=== PATIENT | female | born 1950 | race American Indian/Alaskan Native ===

== ENCOUNTER 2018-06-16 17:04 | Inpatient (IN) | payer MEDICARE, MEDICAID ==
--- NOTE | 2018-06-16 18:15 | Emergency Department Report ---
ED General Adult HPI - General Chief complaint: Weakness Stated complaint: HIGH BP/HIGH GLUCOSE Time Seen by Provider: 06/16/18 17:34 Source: patient, family, RN notes reviewed, old records reviewed Mode of arrival: Ambulatory Limitations: Physical Limitation - History of Present Illness Initial comments: Patient is a poor historian This is a 68-year-old female. The patient has a past medical history of hypertension, tobacco consumption, stroke with residual left-sided deficits. She is brought to the hospital by her daughter for evaluation of left-sided leg weakness, unsteady gait, generalized malaise. Her last known well time is not known. It is suspected that her symptoms have been going on for a week. The patient only complains of genera lized weakness, and decreased energy, does not specifically complain of left- sided weakness which is not a new, worsening or different. The patient denies headache, neck pain, chest pain, abdominal pain, urinary symptoms, has chronic weakness which she subjectively feels is not a new, worsening or different, but her daughter is adamant that her weakness is worse than prior. -: Gradual, days(s) Location: left, upper extremity, lower extremity Consistency: other Improves with: other Worsens with: other Associated Symptoms: loss of appetite, malaise, shortness of breath, weakness. denies: confusion, chest pain, cough, diaphoresis, fever/chills, headaches - Related Data Previous Rx's Medication Instructions Recorded Last Taken Type Acetaminophen [Acetaminophen TAB] 650 mg PO Q4H PRN #30 tablet 11/12/16 Unknown Rx Insulin NPH/Regular [NovoLIN 70/30] 10 unit SUB-Q BIDDIAB 30 Days 11/22/16 Unknown Rx units Insulin NPH/Regular [Novolin 70/30] 10 unit SUB-Q BIDDIAB 30 Days 11/22/16 U nknown Rx units Ipratropium/Albuterol Sulfate 1 ampul IH TIDRT 30 Days ampul.neb 11/22/16 Un known Rx [DUONEB *Not for PRN Use*] Ipratropium/Albuterol Sulfate 1 ampul IH TID #90 ampul.neb 11/22/16 Unknown Rx [Duoneb 0.5 mg-3 mg/3 ml Soln] Lisinopril [Zestril TAB] 40 mg PO QDAY #30 tablet 11/22/16 Unknown Rx Lisinopril [Zestril] 40 mg PO QDAY #30 tablet 11/22/16 Unknown Rx Nicotine [Habitrol] 21 mg TD QDAY #30 patch 11/22/16 Unknown Rx Simvastatin [Zocor TAB] 20 mg PO QHS #30 tablet 11/22/16 Unknown Rx amLODIPine [Norvasc] 10 mg PO DAILY #30 tab 11/22/16 Unknown Rx Allergies Allergy/AdvReac Type Severity Reaction Status Date / Time No Known Allergies Allergy Verified 11/11/16 15:26 ED Review of Systems ROS: Stated complaint: HIGH BP/HIGH GLUCOSE Other details as noted in HPI Constitutional: malaise, weakness Eyes: denies: eye discharge ENT: denies: congestion Respiratory: denies: cough Cardiovascular: edema. denies: chest pain Gastrointestinal: denies: abdominal pain Genitourinary: denies: dysuria Musculoskeletal: arthralgia Skin: denies: lesions Neurological: weakness Psychiatric: anxiety ED Past Medical Hx - Past Medical History Hx Hypertension: Yes Hx Heart Attack/AMI: Yes ([place]) Hx Diabetes: Yes Hx Asthma: Yes Hx COPD: Yes Additional medical history: Arrhythmia o2 at home prn. CAD - Surgical History Additional Surgical History: Cardiac catheterization 2004 - Social History Smoking Status: Current Every Day Smoker Substance Use Type: None - Medications Home Medications: Home Medications Medication Instructions Recorded Confirmed Last Taken Type Acetaminophen [Acetaminophen TAB] 650 mg PO Q4H PRN #30 tablet 11/12/16 11/12/16 Unknown Rx Insulin NPH/Regular [NovoLIN 70/30] 10 unit SUB-Q BIDDIAB 30 Days 11/22/16 Unknown Rx units Insulin NPH/Regular [Novolin 70/30] 10 unit SUB-Q BIDDIAB 30 Days 11/22/16 Unknown Rx units Ipratropium/Albuterol Sulfate 1 ampul IH TIDRT 30 Days ampul.neb 11/22/16 Unknown Rx [DUONEB *Not for PRN Use*] Ipratropium/Albuterol Sulfate 1 ampul IH TID #90 ampul.neb 11/22/16 Unknown Rx [Duoneb 0.5 mg-3 mg/3 ml Soln] Lisinopril [Zestril TAB] 40 mg PO QDAY #30 tablet 11/22/16 Unknown Rx Lisinopril [Zestril] 40 mg PO QDAY #30 tablet 11/22/16 Unknown Rx Nicotine [Habitrol] 21 mg TD QDAY #30 patch 11/22/16 Unknown Rx Simvastatin [Zocor TAB] 20 mg PO QHS #30 tablet 11/22/16 Unknown Rx amLODIPine [Norvasc] 10 mg PO DAILY #30 tab 11/22/16 Unknown Rx ED Physical Exam - General Limitations: No Limitations General appearance: alert, in no apparent distress - Head Head exam: Present: atraumatic, normocephalic - Eye Eye exam: Present: normal appearance, EOMI. Absent: nystagmus - ENT ENT exam: Present: normal exam, normal orophraynx, mucous membranes moist, normal external ear exam - Neck Neck exam: Present: normal inspection, full ROM. Absent: tenderness, meningismus - Respiratory Respiratory exam: Present: normal lung sounds bilaterally. Absent: respiratory distress - Cardiovascular Cardiovascular Exam: Present: regular rate, normal rhythm, normal heart sounds. Absent: bradycardia, tachycardia, irregular rhythm, systolic murmur, diastolic murmur, rubs, gallop - GI/Abdominal GI/Abdominal exam: Present: soft. Absent: distended, tenderness, guarding, rebound, rigid, pulsatile mass - Extremities Exam Extremities exam: Present: normal inspection, full ROM, pedal edema, other (2+ pulses noted in the bilateral upper, lower extremities. Compartments soft. No long bony tenderness. The pelvis is stable.). Absent: calf tenderness - Back Exam Back exam: Present: normal inspection. Absent: tenderness, CVA tenderness (R), paraspinal tenderness - Neurological Exam Neurological exam: Present: alert, oriented X3, motor sensory deficit (there is 4-5 strength left upper, left lower extremity. Sensation intact to light touch left upper, left lower extremity), other (there is no facial droop. The tongue is midline. Extraocular movements are intact bilaterally. Shoulder shrug is intact bilaterally, hearing is intact bilaterally, V1, V2, V3 intact bilaterally) - Psychiatric Psychiatric exam: Present: normal affect, normal mood - Skin Skin exam: Present: warm, dry, intact, normal color. Absent: rash ED Course Vital Signs 06/16/18 06/16/18 06/16/18 17:14 18:38 18:46 Temperature 98 F Pulse Rate 91 H 78 78 Respiratory 16 18 26 H Rate Blood Pressure 240/130 201/112 O2 Sat by Pulse 96 90 92 Oximetry 06/16/18 06/16/18 06/16/18 19:52 20:00 20:02 Temperature Pulse Rate 84 83 Respiratory 20 16 Rate Blood Pressure 213/111 205/108 O2 Sat by Pulse 90 100 Oximetry - Reevaluation(s) Reevaluation #1: 06/16/18 18:19 Differential diagnosis, including not limited to: Subacute stroke, pneumonia, urinary tract infection, electrolyte derangement, deconditioning Assessment and plan: 68-year-old female who is brought in for unsteady gait and worsens left lower extremity weakness by her daughter, which has been going on for a few days. Her exact last known well time is not known. Therefore, the patient is not a TPA candidate. Symptoms have been going on for greater than 24 hours, therefore, the patient is not an endovascular intervention candidate, and therefore emergent CT angiogram of the head and neck is not indicated. The patient only endorses generalized weakness and malaise. We'll obtain screening laboratory studies, EKG, urinalysis, chest x-ray, noncontrast CT scan of the brain, and we will reassess. Reevaluation #2: 06/16/18 19:56 Dr Nicole accepts to the medical service on behalf of Dr Orquidea Crockett Reevaluation #3: 06/16/18 20:24 ct head negative for bleed multiple chronic infarcts noted ED Medical Decision Making - Lab Data Result diagrams: 06/16/18 18:39 06/16/18 18:39 Vital Signs 06/16/18 17:14 Temperature 98 F Pulse Rate 91 H Respiratory 16 Rate Blood Pressure 240/130 O2 Sat by Pulse 96 Oximetry - EKG Data -: EKG Interpreted by Me EKG shows normal: sinus rhythm - EKG Data 06/16/18 18:23 Sinus, 85 bpm, left axis deviation, QTC prolonged, motion artifact, nonspecific T-wave abnormalities, abnormal EKG, not consistent with ST elevation myocardial infarction. - Radiology Data Radiology results: image reviewed interpreted by me: X-ray of the chest is negative for acute disease, cardiomegaly is noted, pulmonary vascular congestion is noted. Critical care attestation.: If time is entered above; I have spent that time in minutes in the direct care of this critically ill patient, excluding procedure time. ED Disposition Clinical Impression: CVA (cerebral vascular accident), Abnormality of gait following cerebrovascular accident (CVA), HTN (hypertension) Disposition: DC-09 OP ADMIT IP TO THIS HOSP Is pt being admited?: Yes Does the pt Need Aspirin: Yes Condition: Stable Instructions: Hypertension (ED) - Assessment Assessment Interval: Baseline - Level of Consciousness 1a. Level of Consciousness: alert/keenly responsive - LOC Questions 1b. LOC Questions: answers both correctly - LOC Command 1c. LOC Commands: performs tasks correctly - Best Gaze 2. Best Gaze: normal - Visual 3. Visual: no visual loss - Facial Palsy 4. Facial Palsy: normal symmetrical movement - Motor Arm 5b. Motor Arm Right: no drift 5a. Motor Arm Left: drift - Motor Leg 6b. Motor Leg Right: drift 6a. Motor Leg Left: no drift - Limb Ataxia 7. Limb Ataxia: absent - Sensory 8. Sensory: normal - Best Language 9. Best Language: no aphasia - Dysarthria 10. Dysarthria: normal - Extinction and Inattention 11. Extinction/Inattention: no abnormality - Scoring Total Score: 2 Stroke Severity: Minor Stroke
[2018-06-16] MEDS ORDERED: APRESOLINE IV ONE (18:20)
[2018-06-16 19:04] LABS: Basophils % (Auto) 1.2 % (0.0-1.8); Eosinophils # (Auto) 0.1 K/mm3 (0.0-0.4); Hematocrit 47.3 % (30.3-42.9); Hemoglobin 15.3 gm/dl (10.1-14.3); Lymphocytes # (Auto) 1.8 K/mm3 (1.2-5.4); Lymphocytes % (Auto) 48.7 % (13.4-35.0); Mean Corpuscular HGB Conc 32 % (30-34); Mean Corpuscular Volume 90 fl (79-97); Monocytes # (Auto) 0.2 K/mm3 (0.0-0.8); Monocytes % (Auto) 6.1 % (0.0-7.3); Platelet Count 181 K/mm3 (140-440); Red Blood Count 5.28 M/mm3 (3.65-5.03); Red Cell Distribution Width 15.9 % (13.2-15.2)
[2018-06-16 19:15] LABS: Bacteria,Urine 2+ /HPF (Negative); Bilirubin,Urine NEG (Negative); Blood,Urine NEG (Negative); Color,Urine Straw (Yellow); Mucus,Urine FEW /HPF; Urobilinogen,Urine < 2.0 mg/dL (<2.0); WBC,Urine < 1.0 /HPF (0.0-6.0)
[2018-06-16 19:17] LABS: INR 0.94 (0.87-1.13)
[2018-06-16 19:18] LABS: Thrombin Time 18.6 Sec. (15.1-19.6)
[2018-06-16 19:49] LABS: Creatine Kinase MB 2.6 ng/mL (0.0-4.0)
[2018-06-16 19:50] LABS: Alanine Aminotransferase 9 units/L (7-56); Albumin 4.1 g/dL (3.9-5); BUN/Creatinine Ratio 16; Blood Urea Nitrogen 11 mg/dL (7-17); Calcium 9.6 mg/dL (8.4-10.2); Hemolysis Index 7
[2018-06-16] MEDS ORDERED: BABY ASPIRIN PO ONE (19:56)
--- NOTE | 2018-06-16 20:21 | Cat Scan Report ---
FINAL REPORT EXAM: CT HEAD/BRAIN WO CON HISTORY: Stroke symptoms TECHNIQUE: Axial noncontrast CT images of the brain were performed Total exam DLP 920.48 mGy-cm Comparison: CTA head 11/11/2016 demonstrating completed left subinsular region with extension into th e left basal ganglia and hypodense region in the right thalamus FINDINGS: Exam is motion degraded. Cortical atrophy. Again identified in the left subinsular region is a completed now 10 millimeter chronic lacunar infar ct. There also completed lacunar infarcts of the right thalamus, the largest measuring 1 centimeter. There is a 2nd smaller completed right thalamic infarct measuring 4 millimeters. No acute extra-axial fluid collection. No midline shift. No mass effect. No intraparenchymal blood products or extra-axial fluid collections. Conjugate gaze. Minimal ethmoid air cell mucosal thickening. IMPRESSION: Known chronic right thalamic and left subinsular completed lacunar infarcts. No acute transcortical infarct, bleed, or mass identified. Exam is motion degraded however. If clinically indicated, recommend MRI with diffusion-weighted imaging.
--- NOTE | 2018-06-16 20:33 | XRay Report ---
FINAL REPORT EXAM: XR CHEST 1V AP HISTORY: weakness TECHNIQUE: Frontal chest x-ray Comparison: None FINDINGS: Heart is enlarged. The right hilar contour is very lobular. This may be vascular or related to a mass. It measures 4.4 x 3.4 centimeters. There are nodular bilateral basal infiltrates. There is degenerative arthritis of the right acromion and acromioclavicular joint. Left pulmonary artery is prominent. Aorta is tortuous. IMPRESSION: Low volume exam with enlarged cardiac silhouette and very prominent lobular katlin. These findings are likely vascular but a mass cannot be excluded. Recommend CT chest. If there is any dyspnea history, r ecommend CTA chest pulmonary artery protocol. Patchy bilateral basal infiltrates.
[2018-06-16] MEDS ORDERED: BABY ASPIRIN ONE (21:55)
[2018-06-16] MEDS ORDERED: DULCOLAX PR PRN (22:27)
[2018-06-16] MEDS ORDERED: REGLAN PO PRN (22:27)
[2018-06-16] MEDS ORDERED: MILK OF MAGNESIA PO PRN (22:27)
[2018-06-16] MEDS ORDERED: APRESOLINE IV PRN (22:27)
[2018-06-16] MEDS ORDERED: ZOFRAN IV PRN (22:27)
[2018-06-16] MEDS ORDERED: PHENERGAN PR PRN (22:27)
[2018-06-16] MEDS ORDERED: TYLENOL PO PRN (22:27)
[2018-06-16] MEDS ORDERED: PNEUMOVAX 23 IM ONE (22:48)
--- NOTE | 2018-06-16 22:52 | History and Physical Report ---
History of Present Illness Date of examination: 06/16/18 Date of admission: 06/16/18 19:56 History of present illness: 68-year-old male with a history of hypertension, CVA comes emergency room c omplaining of left sided weakness 3 weeks. She has difficulty ambulating and occasionally drops things from the left hand Review of systems Constitutional: no weight loss, chills, fever Ears, eyes, nose, mouth and throat: no nasal congestion, no nasal discharge, no sinus pressure, no vision change, no red eye. Neck: No neck pain or rigidity. Cardiovascular: no palpitations, chest pain Respiratory: no cough, shortness of breath Gastrointestinal: no hematochezia, abdominal pain Genitourinary : no frequency , no hematuria Musculoskeletal: no joint swelling or muscle ache Integumentary: no rash, no pruritis Neurological: no parathesias Endocrine: no cold or heat intolerance, no polyuria or polydipsia Hematologic/Lymphatic: no easy bruising, no easy bleeding, no gland swelling Allergic/Immunologic: no urticaria, no angioedema. PAST MEDICAL HISTORY: hypertension, CVA PAST SURGICAL HISTORY: None SOCIAL HISTORY: Denies alcohol, drugs, smoke 1 pack every 3 weeks FAMILY HISTORY: Hypertension Medications and Allergies Allergies Allergy/AdvReac Type Severity Reaction Status Date / Time No Known Allergies Allergy Verified 11/11/16 15:26 Home Medications Medication Instructions Recorded Confirmed Last Taken Type RX: Insulin NPH/Regular [NovoLIN 10 unit SUB-Q BIDDIAB 30 Days 11/22/16 06/16/18 Unknown Rx 70/30] units RX: amLODIPine [Norvasc] 10 mg PO DAILY #30 tab 11/22/16 06/16/18 Unknown Rx RX: Lisinopril [Zestril] 10 mg PO DAILY 06/16/18 06/16/18 Unknown History RX: buPROPion SR [Wellbutrin SR] 150 mg PO BID 06/16/18 06/16/18 Unknown History RX: metFORMIN [Glucophage] 850 mg PO BID 06/16/18 06/16/18 Unknown History RX: AtorvaSTATin [Lipitor] 40 mg PO QHS tablet 06/23/18 Unknown Rx RX: Clopidogrel [Plavix] 75 mg PO QDAY tablet 06/23/18 Unknown Rx RX: Lispro Insulin [Humalog] 0 unit SUB-Q ACHS units 06/23/18 Unknown Rx RX: Magnesium Hydroxide [Milk of 30 ml PO Q4H PRN oral.liqd 06/23/18 Unknown Rx Magnesia] RX: Metoclopramide [Reglan TAB] 10 mg PO Q6H PRN tablet 06/23/18 Unknown Rx RX: Nicotine [Habitrol] 14 mg TD QDAY patch 06/23/18 Unknown Rx Active Meds: Active Medications Acetaminophen (Tylenol) 650 mg PO Q4H PRN PRN Reason: Pain, Mild (1-3) Bisacodyl (Dulcolax) 10 mg PA QDAY PRN PRN Reason: Constipation Hydralazine HCl (Apresoline) 5 mg IV Q6H PRN PRN Reason: Keep SBP between 160-185 mm Hg Magnesium Hydroxide (Milk Of Magnesia) 30 ml PO Q4H PRN PRN Reason: Constipation Metoclopramide HCl (Reglan) 10 mg PO Q6H PRN PRN Reason: Nausea And Vomiting Ondansetron HCl (Zofran) 4 mg IV Q8H PRN PRN Reason: Nausea And Vomiting Pneumococcal Polyvalent Vaccine (Pneumovax 23) 0.5 ml IM .ONCE ONE Stop: 06/16/18 22:49 Pravastatin Sodium (Pravachol) 20 mg PO QHS JOSE MIGUEL Promethazine HCl (Phenergan) 25 mg PA Q6H PRN PRN Reason: Nausea And Vomiting Sodium Chloride (Sodium Chloride Flush Syringe 10 Ml) 10 ml INJ PRN PRN PRN Reason: LINE FLUSH Exam - Physical Exam Narrative exam: General Apperance: The patient lying in bed, breathing comfortable HEENT: Normocephalic, atraumatic. Pupils equally round and reactive to light, EOMI, no sclericterus or JVD or thyromegaly or nodule. , no carotid bruit, mucous membranes moist, no exudate or erythema Heart: S1-S2, regular is rhythm Lungs: Clear to auscultation bilaterally, breathing comfortable Abdomen: Positive bowel sounds, soft, nontender, nondistended, no organomegaly Extremities: No edema cyanosis clubbing Skin: no rash, nodule, warm and dry Neuro: cranial nerves 2-12 intact, speech is fluent, left upper and lower extremity 4/5, sensory intact - Constitutional Vitals: Temp Pulse Resp BP Pulse Ox 98 F 88 18 156/72 99 06/16/18 17:14 06/16/18 21:00 06/16/18 22:00 06/16/18 21:30 06/16/18 21:30 Results - Labs CBC & Chem 7: 06/16/18 18:39 06/16/18 18:39 Labs: Abnormal lab results 06/16/18 06/16/18 06/16/18 Range/Units 17:24 18:39 18:39 WBC 3.7 L (4.5-11.0) K/mm3 RBC 5.28 H (3.65-5.03) M/mm3 Hgb 15.3 H (10.1-14.3) gm/dl Hct 47.3 H (30.3-42.9) % RDW 15.9 H (13.2-15.2) % Lymph % (Auto) 48.7 H (13.4-35.0) % Seg Neutrophils # 1.6 L (1.8-7.7) K/mm3 Carbon Dioxide 35 H (22-30) mmol/L Glucose 139 H (65-100) mg/dL POC Glucose 174 H (70-105) - Imaging and Cardiology Chest x-ray: report reviewed CT Scan - head: report reviewed Assessment and Plan Assessment Subacute CVA Possible mass on x-ray Hypertension Plan Admit to medicine Obtain MRI, MRA, echo Do neurochecks Start Plavix, statin Consult neurology, physical and occupational therapy Repeat chest x-ray PA and lateral DVT prophylaxis
[2018-06-17 07:43] LABS: Chol/HDL Ratio 4.38 %
[2018-06-17] MEDS: PLAVIX PO SCH (11:28)
[2018-06-17] MEDS: HABITROL TD SCH (11:34)
--- NOTE | 2018-06-17 11:43 | Progress Note ---
Subjective Date of service: 06/17/18 Interval history: patient seen and assesssed completely I have reviewed the CT of the head and the infarct is multifocal and suspect chronic/ subacute recommend ECHO and MRI/ MRA w/u is in progress I ahve dictated extensive note with full rec's Objective - Vital Sign Vital Signs - 12hr 06/17/18 06/17/18 06/17/18 00:14 04:15 05:58 Temperature 98.5 F 97.4 F L Pulse Rate 79 74 78 Respiratory 18 20 Rate Blood Pressure 185/92 150/85 O2 Sat by Pulse 97 90 Oximetry - Laboratory Findings CBC and BMP: 06/16/18 18:39 06/16/18 18:39 Abnormal Lab Findings: Abnormal Labs 06/16/18 06/16/18 06/16/18 17:24 18:39 18:39 WBC 3.7 L RBC 5.28 H Hgb 15.3 H Hct 47.3 H RDW 15.9 H Lymph % (Auto) 48.7 H Seg Neutrophils # 1.6 L Carbon Dioxide 35 H Glucose 139 H POC Glucose 174 H LDL Cholesterol Direct 06/17/18 06/17/18 04:19 06:27 WBC RBC Hgb Hct RDW Lymph % (Auto) Seg Neutrophils # Carbon Dioxide Glucose POC Glucose 133 H LDL Cholesterol Direct 139 H
[2018-06-17] MEDS ORDERED: PNEUMOVAX 23 IM ONE (12:00)
[2018-06-17] MEDS ORDERED: AFLURIA QUAD 2018-2019 SYRINGE IM ONE (12:00)
--- NOTE | 2018-06-17 12:14 | Consultation ---
HISTORY OF PRESENT ILLNESS: This is a 68-year-old female that presents to Emergency Room at [facility] on 06/16/2018. The patient had a prior history of hypertension and presented with past medical history of having a stroke and she has had increased leg weakness, unsteady gait, and problems of walking. We do not have much of the history as to when the stroke occurred. She had been taking lisinopril, insulin prior to admission and Norvasc. She has a prior history of hypertension, tobacco abuse. The exact onset of her stroke I do not have a clear history about. I did review her CT scan of the head. It shows a large area of deep white matter infarct in the deep white matter of the cerebral peduncle on the right side in the subthalamic region and the motor pathways is quite extensive. It seems to have multifocal nature to it as if several strokes have become confluent, possibly from thrombus in the posterior cerebral artery. After the bifurcation of the basilar the patient has a prior history of having cardiomegaly and COPD. Examination shows she has a mild left hemiparesis, left leg weakness, left facial weakness. She has some parietal lobe findings with the neglect, gaze preference to the right. Neck is Supple. Speech is otherwise clear. She does seem slightly sleepy. IMPRESSION: I am not sure exactly the date of the stroke. This is chronic. It seems to have occurred over at least several weeks with probably recurrent strokes. What is referred to as a confluence stroke with subacute chronic and acute components. MRI scan will be very useful. I would also get an MRI on the patient as I think we are going to find she has severe atherosclerotic disease or maybe a total or subacute occlusion of the right posterior cerebral artery. I would like to make sure she has not had a clot and sometimes clots systemically occur as a result of left ventricular and left atrial clots and this will be important to rule out. I believe that this is due to chronic atherosclerotic disease; however, complicating factors of hypertension, use of tobacco. Continue course of medical therapy as outlined above. JOB# [id number] LISETTE/BARBARA
[2018-06-17 12:21] LABS: Bacteria,Urine 4+ /HPF (Negative); Bilirubin,Urine NEG (Negative); Blood,Urine SM (Negative); Color,Urine Amber (Yellow); Mucus,Urine 1+ /HPF; Urobilinogen,Urine < 2.0 mg/dL (<2.0)
[2018-06-17] MEDS ORDERED: D50W (25GM) Syringe IV PRN (16:25)
--- NOTE | 2018-06-17 16:26 | Progress Note ---
Assessment and Plan Assessment and plan: Subacute stroke Mild left-sided weakness - Patient says the symptoms have been there for 2-3 weeks - CT head shows chronic left-sided infarcts - MRI/MRA is pending, PT/OT, neurology consulted - Patient is on plavix and statin Hypertension - Continue amlodipine Diabetes mellitus - Sliding-scale insulin, ADA diet, Accu-Chek Active tobacco smoker - On nicotine patch DVT prophylaxis - On Lovenox Disposition - Continue inpatient care History Interval history: Patent was seen and evaluated this morning, no new complaints. Admitted for left sided weakness. Hospitalist Physical - Physical exam Narrative exam: Not in cardiopulmonary distress. The patient is obese. Vital signs as documented. Head exam is unremarkable. No scleral icterus . Neck is without jugular venous distension, thyromegaly, or carotid bruits. Lungs are clear to auscultation. Cardiac exam reveals regular rate and Rhythm. Abdominal exam reveals normal bowel sounds. Extremities are nonedematous and both femoral and pedal pulses are normal. HYDRAULIC MINER BLASTING: Alert and oriented 3. Mild left sided weakness. - Constitutional Vitals: Temp Pulse Resp BP Pulse Ox 98.6 F 77 20 145/80 96 06/17/18 09:21 06/17/18 14:00 06/17/18 10:00 06/17/18 12:12 06/17/18 12:12 Results - Labs CBC & Chem 7: 06/16/18 18:39 06/16/18 18:39 Labs: Laboratory Last Values WBC 3.7 K/mm3 (4.5-11.0) L 06/16/18 18:39 RBC 5.28 M/mm3 (3.65-5.03) H 06/16/18 18:39 Hgb 15.3 gm/dl (10.1-14.3) H 06/16/18 18:39 Hct 47.3 % (30.3-42.9) H 06/16/18 18:39 MCV 90 fl (79-97) 06/16/18 18:39 MCH 29 pg (28-32) 06/16/18 18:39 MCHC 32 % (30-34) 06/16/18 18:39 RDW 15.9 % (13.2-15.2) H 06/16/18 18:39 Plt Count 181 K/mm3 (140-440) 06/16/18 18:39 Lymph % (Auto) 48.7 % (13.4-35.0) H 06/16/18 18:39 [place] % (Auto) 6.1 % (0.0-7.3) 06/16/18 18:39 Eos % (Auto) 2.0 % (0.0-4.3) 06/16/18 18:39 Baso % (Auto) 1.2 % (0.0-1.8) 06/16/18 18:39 Lymph # 1.8 K/mm3 (1.2-5.4) 06/16/18 18:39 [place] # 0.2 K/mm3 (0.0-0.8) 06/16/18 18:39 Eos # 0.1 K/mm3 (0.0-0.4) 06/16/18 18:39 Baso # 0.0 K/mm3 (0.0-0.1) 06/16/18 18:39 Seg Neutrophils % 42.0 % (40.0-70.0) 06/16/18 18:39 Seg Neutrophils # 1.6 K/mm3 (1.8-7.7) L 06/16/18 18:39 PT 13.0 Sec. (12.2-14.9) 06/16/18 18:39 INR 0.94 (0.87-1.13) 06/16/18 18:39 APTT 29.0 Sec. (24.2-36.6) 06/16/18 18:39 Thrombin Time 18.6 Sec. (15.1-19.6) 06/16/18 18:39 Sodium 145 mmol/L (137-145) 06/16/18 18:39 Potassium 4.4 mmol/L (3.6-5.0) 06/16/18 18:39 Chloride 101.5 mmol/L (98-107) 06/16/18 18:39 Carbon Dioxide 35 mmol/L (22-30) H 06/16/18 18:39 Anion Gap 13 mmol/L 06/16/18 18:39 BUN 11 mg/dL (7-17) 06/16/18 18:39 Creatinine 0.7 mg/dL (0.7-1.2) 06/16/18 18:39 Estimated GFR > 60 ml/min 06/16/18 18:39 BUN/Creatinine Ratio 16 % 06/16/18 18:39 Glucose 139 mg/dL (65-100) H 06/16/18 18:39 POC Glucose 129 (70-105) H 06/17/18 11:28 Calcium 9.6 mg/dL (8.4-10.2) 06/16/18 18:39 Total Bilirubin 0.20 mg/dL (0.1-1.2) 06/16/18 18:39 AST 15 units/L (5-40) 06/16/18 18:39 ALT 9 units/L (7-56) 06/16/18 18:39 Alkaline Phosphatase 102 units/L (35-129) 06/16/18 18:39 Total Creatine Kinase 112 units/L (30-135) 06/16/18 18:39 CK-MB (CK-2) 2.6 ng/mL (0.0-4.0) 06/16/18 18:39 CK-MB (CK-2) Rel Index 2.3 (0-4) 06/16/18 18:39 Troponin T < 0.010 ng/mL (0.00-0.029) 06/16/18 18:39 Total Protein 7.6 g/dL (6.3-8.2) 06/16/18 18:39 Albumin 4.1 g/dL (3.9-5) 06/16/18 18:39 Albumin/Globulin Ratio 1.2 % 06/16/18 18:39 Triglycerides 135 mg/dL (2-149) 06/17/18 04:19 Cholesterol 184 mg/dL (50-199) 06/17/18 04:19 LDL Cholesterol Direct 139 mg/dL (50-130) H 06/17/18 04:19 HDL Cholesterol 42 mg/dL (40-59) 06/17/18 04:19 Cholesterol/HDL Ratio 4.38 % 06/17/18 04:19 Urine Color Faye (Yellow) 06/17/18 12:00 Urine Turbidity Slightly-cloudy (Clear) 06/17/18 12:00 Urine pH 5.0 (5.0-7.0) 06/17/18 12:00 Ur Specific [place] 1.023 (1.003-1.030) 06/17/18 12:00 Urine Protein 100 mg/dl mg/dL (Negative) 06/17/18 12:00 Urine Glucose (UA) Neg mg/dL (Negative) 06/17/18 12:00 Urine Ketones Neg mg/dL (Negative) 06/17/18 12:00 Urine Blood Sm (Negative) 06/17/18 12:00 Urine Nitrite Neg (Negative) 06/17/18 12:00 Urine Bilirubin Neg (Negative) 06/17/18 12:00 Urine Urobilinogen < 2.0 mg/dL (<2.0) 06/17/18 12:00 Ur Leukocyte Esterase Neg (Negative) 06/17/18 12:00 Urine WBC (Auto) 5.0 /HPF (0.0-6.0) 06/17/18 12:00 Urine RBC (Auto) 1.0 /HPF (0.0-6.0) 06/17/18 12:00 U Epithel Cells (Auto) 5.0 /HPF (0-13.0) 06/17/18 12:00 Urine Bacteria (Auto) 4+ /HPF (Negative) 06/17/18 12:00 Urine Mucus 1+ /HPF 06/17/18 12:00
[2018-06-17] MEDS: HumaLOG SUB-Q SCH ×2 (16:30→22:04)
[2018-06-17] MEDS: NORVASC PO SCH (18:37)
--- NOTE | 2018-06-17 18:58 | Cat Scan Report ---
FINAL REPORT EXAM: CT ANGIO CHEST HISTORY: lung mass vs PE TECHNIQUE: CT examination of the chest with IV contrast CT angiographic 2D and thick slab 3D image post-processing PRIORS: One-view chest 06/16/2018 FINDINGS: Large body habitus limits the examination. Increased soft tissue attenuates the CT x-ray beam and de grades image quality. Caliber of pulmonary arteries larger than ascending aorta raising suspicion of pulmonary arterial hyp ertension. The main pulmonary arteries are also prominent bilaterally, likely accounting for chest x- ray density. Slight to moderate cardiomegaly without pericardial effusion. Intact normal caliber thoracic aorta without aneurysm or dissection. Normal-appearing esophagus. No e vidence of hilar mass or mediastinal adenopathy. The visualized pulmonary arteries are diffusely patent bilaterally. There is no filling defect to sug gest PE. Degenerative change in the regional skeleton. No evidence of acute fracture. No pneumothorax or pleur al effusion. No evidence of lung mass. Slight pleural and parenchymal scar in both lung apices. IMPRESSION: Large body habitus limits the examination. Diffusely enlarged pulmonary arteries bilaterally likely account for chest x-ray density and may refl ect pulmonary arterial hypertension Slight to moderate cardiomegaly No CT evidence of large vessel or central pulmonary emboli.
[2018-06-17] MEDS ORDERED: PRAVACHOL PO SCH (22:00)
[2018-06-17] MEDS: LOVENOX SUB-Q SCH (22:05)
[2018-06-17] MEDS: SODIUM CHLORIDE FLUSH SYRINGE 10 ML IV PRN (22:06)
[2018-06-18] MEDS: HumaLOG SUB-Q SCH ×4 (07:30→22:38)
[2018-06-18] MEDS: HABITROL TD SCH (10:30)
[2018-06-18] MEDS: PLAVIX PO SCH (10:30)
[2018-06-18] MEDS: NORVASC PO SCH (10:31)
[2018-06-18] MEDS: ZESTRIL PO SCH (10:31)
[2018-06-18] MEDS: SODIUM CHLORIDE FLUSH SYRINGE 10 ML IV PRN (10:32)
--- NOTE | 2018-06-18 11:09 | Progress Note ---
Subjective Date of service: 06/18/18 Interval history: chest CTA shows evidence of right sided CHF and pulmonary hypertension.... plan MRI of brain for recurrent stroke multiple chronic factors are addressed Objective - Vital Sign Vital Signs - 12hr 06/18/18 06/18/18 06/18/18 00:03 04:10 08:19 Temperature 98.0 F 98.0 F 98.0 F Pulse Rate 80 74 69 Respiratory 18 18 20 Rate Blood Pressure 151/75 179/92 165/73 O2 Sat by Pulse 90 96 100 Oximetry 06/18/18 10:31 Temperature Pulse Rate 69 Respiratory Rate Blood Pressure 165/73 O2 Sat by Pulse Oximetry - Laboratory Findings CBC and BMP: 06/16/18 18:39 06/16/18 18:39 Abnormal Lab Findings: Abnormal Labs 06/16/18 06/16/18 06/16/18 17:24 18:39 18:39 WBC 3.7 L RBC 5.28 H Hgb 15.3 H Hct 47.3 H RDW 15.9 H Lymph % (Auto) 48.7 H Seg Neutrophils # 1.6 L Carbon Dioxide 35 H Glucose 139 H POC Glucose 174 H Hemoglobin A1c LDL Cholesterol Direct 06/17/18 06/17/18 06/17/18 04:19 06:27 11:28 WBC RBC Hgb Hct RDW Lymph % (Auto) Seg Neutrophils # Carbon Dioxide Glucose POC Glucose 133 H 129 H Hemoglobin A1c LDL Cholesterol Direct 139 H 06/17/18 06/17/18 06/17/18 16:43 18:38 21:20 WBC RBC Hgb Hct RDW Lymph % (Auto) Seg Neutrophils # Carbon Dioxide Glucose POC Glucose 135 H 108 H Hemoglobin A1c 8.5 H LDL Cholesterol Direct 06/18/18 06:33 WBC RBC Hgb Hct RDW Lymph % (Auto) Seg Neutrophils # Carbon Dioxide Glucose POC Glucose 106 H Hemoglobin A1c LDL Cholesterol Direct
[2018-06-18] MEDS: GLUCOPHAGE PO SCH ×2 (11:33→22:43)
--- NOTE | 2018-06-18 16:31 | Progress Note ---
Assessment and Plan Assessment and plan: Subacute stroke Mild left-sided weakness - Patient says the symptoms have been there for 2-3 weeks - CT head shows chronic left-sided infarcts - MRI/MRA is pending, PT/OT, neurology consulted - Patient is on plavix and statin Hypertension - Continue amlodipine Diabetes mellitus - Sliding-scale insulin, ADA diet, Accu-Chek Active tobacco smoker - On nicotine patch DVT prophylaxis - On Lovenox Disposition - Continue inpatient care History Interval history: Patent was seen and evaluated this morning, no new complaints. Admitted for left sided weakness. Hospitalist Physical - Physical exam Narrative exam: Not in cardiopulmonary distress. The patient is obese. Vital signs as documented. Head exam is unremarkable. No scleral icterus . Neck is without jugular venous distension, thyromegaly, or carotid bruits. Lungs are clear to auscultation. Cardiac exam reveals regular rate and Rhythm. Abdominal exam reveals normal bowel sounds. Extremities are nonedematous and both femoral and pedal pulses are normal. AUDIO VIDEO REPAIRER: Alert and oriented 3. Mild left sided weakness. - Constitutional Vitals: Temp Pulse Resp BP Pulse Ox 98.0 F 72 20 162/86 93 06/18/18 11:06 06/18/18 12:00 06/18/18 11:06 06/18/18 11:06 06/18/18 11:06 Results - Labs CBC & Chem 7: 06/16/18 18:39 06/16/18 18:39 Labs: Laboratory Last Values WBC 3.7 K/mm3 (4.5-11.0) L 06/16/18 18:39 RBC 5.28 M/mm3 (3.65-5.03) H 06/16/18 18:39 Hgb 15.3 gm/dl (10.1-14.3) H 06/16/18 18:39 Hct 47.3 % (30.3-42.9) H 06/16/18 18:39 MCV 90 fl (79-97) 06/16/18 18:39 MCH 29 pg (28-32) 06/16/18 18:39 MCHC 32 % (30-34) 06/16/18 18:39 RDW 15.9 % (13.2-15.2) H 06/16/18 18:39 Plt Count 181 K/mm3 (140-440) 06/16/18 18:39 Lymph % (Auto) 48.7 % (13.4-35.0) H 06/16/18 18:39 [place] % (Auto) 6.1 % (0.0-7.3) 06/16/18 18:39 Eos % (Auto) 2.0 % (0.0-4.3) 06/16/18 18:39 Baso % (Auto) 1.2 % (0.0-1.8) 06/16/18 18:39 Lymph # 1.8 K/mm3 (1.2-5.4) 06/16/18 18:39 [place] # 0.2 K/mm3 (0.0-0.8) 06/16/18 18:39 Eos # 0.1 K/mm3 (0.0-0.4) 06/16/18 18:39 Baso # 0.0 K/mm3 (0.0-0.1) 06/16/18 18:39 Seg Neutrophils % 42.0 % (40.0-70.0) 06/16/18 18:39 Seg Neutrophils # 1.6 K/mm3 (1.8-7.7) L 06/16/18 18:39 PT 13.0 Sec. (12.2-14.9) 06/16/18 18:39 INR 0.94 (0.87-1.13) 06/16/18 18:39 APTT 29.0 Sec. (24.2-36.6) 06/16/18 18:39 Thrombin Time 18.6 Sec. (15.1-19.6) 06/16/18 18:39 Sodium 145 mmol/L (137-145) 06/16/18 18:39 Potassium 4.4 mmol/L (3.6-5.0) 06/16/18 18:39 Chloride 101.5 mmol/L (98-107) 06/16/18 18:39 Carbon Dioxide 35 mmol/L (22-30) H 06/16/18 18:39 Anion Gap 13 mmol/L 06/16/18 18:39 BUN 11 mg/dL (7-17) 06/16/18 18:39 Creatinine 0.7 mg/dL (0.7-1.2) 06/16/18 18:39 Estimated GFR > 60 ml/min 06/16/18 18:39 BUN/Creatinine Ratio 16 % 06/16/18 18:39 Glucose 139 mg/dL (65-100) H 06/16/18 18:39 POC Glucose 151 (70-105) H 06/18/18 11:06 Hemoglobin A1c 8.5 % (4-6) H 06/17/18 16:43 Calcium 9.6 mg/dL (8.4-10.2) 06/16/18 18:39 Total Bilirubin 0.20 mg/dL (0.1-1.2) 06/16/18 18:39 AST 15 units/L (5-40) 06/16/18 18:39 ALT 9 units/L (7-56) 06/16/18 18:39 Alkaline Phosphatase 102 units/L (35-129) 06/16/18 18:39 Total Creatine Kinase 112 units/L (30-135) 06/16/18 18:39 CK-MB (CK-2) 2.6 ng/mL (0.0-4.0) 06/16/18 18:39 CK-MB (CK-2) Rel Index 2.3 (0-4) 06/16/18 18:39 Troponin T < 0.010 ng/mL (0.00-0.029) 06/16/18 18:39 Total Protein 7.6 g/dL (6.3-8.2) 06/16/18 18:39 Albumin 4.1 g/dL (3.9-5) 06/16/18 18:39 Albumin/Globulin Ratio 1.2 % 06/16/18 18:39 Triglycerides 135 mg/dL (2-149) 06/17/18 04:19 Cholesterol 184 mg/dL (50-199) 06/17/18 04:19 LDL Cholesterol Direct 139 mg/dL (50-130) H 06/17/18 04:19 HDL Cholesterol 42 mg/dL (40-59) 06/17/18 04:19 Cholesterol/HDL Ratio 4.38 % 06/17/18 04:19 Urine Color Faye (Yellow) 06/17/18 12:00 Urine Turbidity Slightly-cloudy (Clear) 06/17/18 12:00 Urine pH 5.0 (5.0-7.0) 06/17/18 12:00 Ur Specific [place] 1.023 (1.003-1.030) 06/17/18 12:00 Urine Protein 100 mg/dl mg/dL (Negative) 06/17/18 12:00 Urine Glucose (UA) Neg mg/dL (Negative) 06/17/18 12:00 Urine Ketones Neg mg/dL (Negative) 06/17/18 12:00 Urine Blood Sm (Negative) 06/17/18 12:00 Urine Nitrite Neg (Negative) 06/17/18 12:00 Urine Bilirubin Neg (Negative) 06/17/18 12:00 Urine Urobilinogen < 2.0 mg/dL (<2.0) 06/17/18 12:00 Ur Leukocyte Esterase Neg (Negative) 06/17/18 12:00 Urine WBC (Auto) 5.0 /HPF (0.0-6.0) 06/17/18 12:00 Urine RBC (Auto) 1.0 /HPF (0.0-6.0) 06/17/18 12:00 U Epithel Cells (Auto) 5.0 /HPF (0-13.0) 06/17/18 12:00 Urine Bacteria (Auto) 4+ /HPF (Negative) 06/17/18 12:00 Urine Mucus 1+ /HPF 06/17/18 12:00
[2018-06-18] MEDS: LOVENOX SUB-Q SCH (22:43)
[2018-06-19] MEDS: HumaLOG SUB-Q SCH ×4 (08:23→21:21)
[2018-06-19] MEDS: ZESTRIL PO SCH (09:44)
[2018-06-19] MEDS: GLUCOPHAGE PO SCH ×2 (09:44→21:21)
[2018-06-19] MEDS: PLAVIX PO SCH (09:44)
[2018-06-19] MEDS: HABITROL TD SCH (09:44)
[2018-06-19] MEDS: NORVASC PO SCH (09:44)
--- NOTE | 2018-06-19 11:01 | Cat Scan Report ---
CT HEAD WITHOUT CONTRAST: HISTORY: Worsening of weakness. TECHNIQUE: Sequential 2.5mm CT images. COMPARISON: none. FINDINGS: Compared to the CT head dated 06/16/18. There is no evidence for hemorrhage, mass, mass effect or extra axial fluid collection. Chronic focal infarcts in both thalami are again noted. There is increased diminished attenuation in the right subinsular region and superior right temporal lobe since the previous exam. This probably represents an evolving ischemic insult. The remainder of the examination is unchanged. Ventricular size is within normal limits. Mild chronic white matter changes are stable. IMPRESSION: There is increased diminished attenuation in the right basal ganglia region/right superior temporal lobe which appears to represent an evolving ischemic infarct. This infarct appears slightly larger than on the CT performed 3 days ago. There is no evidence for hemorrhage or mass effect. Consider further evaluation with MRI if needed.
[2018-06-19] MEDS ORDERED: NACL 0.9% 1000 ML 1,000 ML IV SCH (12:00)
--- NOTE | 2018-06-19 17:33 | Progress Note ---
Assessment and Plan Assessment and plan: Acute CVA Mild left-sided weakness - Patient says the symptoms have been there for 2-3 weeks - But the patient has progression of ischemia this morning - CT head shows chronic left-sided infarcts on admission and progressed this morning - MRI/MRA is pending, PT/OT, neurology consulted - Patient is on plavix and statin Hypertension - held BP meds , permissive HTN Diabetes mellitus - Sliding-scale insulin, ADA diet, Accu-Chek Active tobacco smoker - On nicotine patch DVT prophylaxis - On Lovenox Disposition - Continue inpatient care When I evaluated this patient in the morning the patient's left side was limp, left facial droop and was sleeping while she was eating breakfast and food was drooling from the mouth. The patient was alert and oriented, and she said the left side is getting very weak, no chest pain shortness of breath. Patient was hemodynamically stable. Code stroke was called and stat CT head was done showed progression of the right subthalamic infarction. Telemetry neurologist was consulted and recommended routine stroke workup, nothing much can be done acutely. The patient nothing by mouth, speech evaluation, DC the BP meds and give IVF. I tried to contact her daughter Ms Trejo at [phone] unsuccessfully. The high probability of a clinically significant, sudden or life threatening deterioration of the [Neurology] system(s) required my full and direct attent ion, intervention and personal management. The aggregate critical care time was [34] minutes. This time is in addition to time spent performing reported procedures but includes the following: [x] Data Review and interpretation [x] Patient assessment and monitoring of vital signs [x] Documentation [x] Medication orders and managemen History Interval history: Patent was seen and evaluated this morning, patient's weakness was worsening and the left side become limp with facial droop. Tried to reach her daughter Ms Trejo @[phone] to discuss about her mom's condition but she didn't picked up. Hospitalist Physical - Physical exam Narrative exam: Not in cardiopulmonary distress. The patient is obese. Vital signs as documented. Head exam is unremarkable. No scleral icterus . Neck is without jugular venous distension, thyromegaly, or carotid bruits. Lungs are clear to auscultation. Cardiac exam reveals regular rate and Rhythm. Abdominal exam reveals normal bowel sounds. Extremities are nonedematous and both femoral and pedal pulses are normal. INTELLIGENCE OPERATIONS SPECIALIST: Alert and oriented 3. left facial palsy and left hemiplegia. - Constitutional Vitals: Temp Pulse Resp BP Pulse Ox 98.5 F 74 18 139/80 98 06/19/18 12:37 06/19/18 12:37 06/19/18 12:37 06/19/18 08:43 06/19/18 12:37 Results - Labs CBC & Chem 7: 06/16/18 18:39 06/16/18 18:39 Labs: Laboratory Last Values WBC 3.7 K/mm3 (4.5-11.0) L 06/16/18 18:39 RBC 5.28 M/mm3 (3.65-5.03) H 06/16/18 18:39 Hgb 15.3 gm/dl (10.1-14.3) H 06/16/18 18:39 Hct 47.3 % (30.3-42.9) H 06/16/18 18:39 MCV 90 fl (79-97) 06/16/18 18:39 MCH 29 pg (28-32) 06/16/18 18:39 MCHC 32 % (30-34) 06/16/18 18:39 RDW 15.9 % (13.2-15.2) H 06/16/18 18:39 Plt Count 181 K/mm3 (140-440) 06/16/18 18:39 Lymph % (Auto) 48.7 % (13.4-35.0) H 06/16/18 18:39 [place] % (Auto) 6.1 % (0.0-7.3) 06/16/18 18:39 Eos % (Auto) 2.0 % (0.0-4.3) 06/16/18 18:39 Baso % (Auto) 1.2 % (0.0-1.8) 06/16/18 18:39 Lymph # 1.8 K/mm3 (1.2-5.4) 06/16/18 18:39 [place] # 0.2 K/mm3 (0.0-0.8) 06/16/18 18:39 Eos # 0.1 K/mm3 (0.0-0.4) 06/16/18 18:39 Baso # 0.0 K/mm3 (0.0-0.1) 06/16/18 18:39 Seg Neutrophils % 42.0 % (40.0-70.0) 06/16/18 18:39 Seg Neutrophils # 1.6 K/mm3 (1.8-7.7) L 06/16/18 18:39 PT 13.0 Sec. (12.2-14.9) 06/16/18 18:39 INR 0.94 (0.87-1.13) 06/16/18 18:39 APTT 29.0 Sec. (24.2-36.6) 06/16/18 18:39 Thrombin Time 18.6 Sec. (15.1-19.6) 06/16/18 18:39 Sodium 145 mmol/L (137-145) 06/16/18 18:39 Potassium 4.4 mmol/L (3.6-5.0) 06/16/18 18:39 Chloride 101.5 mmol/L (98-107) 06/16/18 18:39 Carbon Dioxide 35 mmol/L (22-30) H 06/16/18 18:39 Anion Gap 13 mmol/L 06/16/18 18:39 BUN 11 mg/dL (7-17) 06/16/18 18:39 Creatinine 0.7 mg/dL (0.7-1.2) 06/16/18 18:39 Estimated GFR > 60 ml/min 06/16/18 18:39 BUN/Creatinine Ratio 16 % 06/16/18 18:39 Glucose 139 mg/dL (65-100) H 06/16/18 18:39 POC Glucose 142 (70-105) H 06/19/18 10:40 Hemoglobin A1c 8.5 % (4-6) H 06/17/18 16:43 Calcium 9.6 mg/dL (8.4-10.2) 06/16/18 18:39 Total Bilirubin 0.20 mg/dL (0.1-1.2) 06/16/18 18:39 AST 15 units/L (5-40) 06/16/18 18:39 ALT 9 units/L (7-56) 06/16/18 18:39 Alkaline Phosphatase 102 units/L (35-129) 06/16/18 18:39 Total Creatine Kinase 112 units/L (30-135) 06/16/18 18:39 CK-MB (CK-2) 2.6 ng/mL (0.0-4.0) 06/16/18 18:39 CK-MB (CK-2) Rel Index 2.3 (0-4) 06/16/18 18:39 Troponin T < 0.010 ng/mL (0.00-0.029) 06/16/18 18:39 Total Protein 7.6 g/dL (6.3-8.2) 06/16/18 18:39 Albumin 4.1 g/dL (3.9-5) 06/16/18 18:39 Albumin/Globulin Ratio 1.2 % 06/16/18 18:39 Triglycerides 135 mg/dL (2-149) 06/17/18 04: Cholesterol 184 mg/dL (50-199) 06/17/18 04: LDL Cholesterol Direct 139 mg/dL (50-130) H 06/17/18 04: HDL Cholesterol 42 mg/dL (40-59) 06/17/18 04: Cholesterol/HDL Ratio 4.38 % 06/17/18 04:19 Urine Color Faye (Yellow) 06/17/18 12:00 Urine Turbidity Slightly-cloudy (Clear) 06/17/18 12:00 Urine pH 5.0 (5.0-7.0) 06/17/18 12:00 Ur Specific [place] 1.023 (1.003-1.030) 06/17/18 12:00 Urine Protein 100 mg/dl mg/dL (Negative) 06/17/18 12:00 Urine Glucose (UA) Neg mg/dL (Negative) 06/17/18 12:00 Urine Ketones Neg mg/dL (Negative) 06/17/18 12:00 Urine Blood Sm (Negative) 06/17/18 12:00 Urine Nitrite Neg (Negative) 06/17/18 12:00 Urine Bilirubin Neg (Negative) 06/17/18 12:00 Urine Urobilinogen < 2.0 mg/dL (<2.0) 06/17/18 12:00 Ur Leukocyte Esterase Neg (Negative) 06/17/18 12:00 Urine WBC (Auto) 5.0 /HPF (0.0-6.0) 06/17/18 12:00 Urine RBC (Auto) 1.0 /HPF (0.0-6.0) 06/17/18 12:00 U Epithel Cells (Auto) 5.0 /HPF (0-13.0) 06/17/18 12:00 Urine Bacteria (Auto) 4+ /HPF (Negative) 06/17/18 12:00 Urine Mucus 1+ /HPF 06/17/18 12:00
[2018-06-19 17:40] LABS: INR 1.03 (0.87-1.13)
--- NOTE | 2018-06-19 17:52 | Progress Note ---
Subjective Date of service: 06/19/18 Interval history: I went over the CT of the head reeat and this is extension of stroke previous described in detail in my prior note suspect this is combo effect of two prior stroke in the SAME distribution of the right FIELD SAMPLING TECHNICIAN proximal ortion... this may well be thee tird stroke from chronic lesion MRA will be helpful to define medical therapy best option -- hospitalist and I spoke Objective - Vital Sign Vital Signs - 12hr 06/19/18 06/19/18 06/19/18 08:43 10:00 12:37 Temperature 98.3 F 98.5 F Pulse Rate 80 74 Respiratory 18 18 18 Rate Blood Pressure 139/80 O2 Sat by Pulse 77 L 98 Oximetry - Laboratory Findings CBC and BMP: 06/16/18 18:39 06/16/18 18:39 Abnormal Lab Findings: Abnormal Labs 06/16/18 06/16/18 06/16/18 17:24 18:39 18:39 WBC 3.7 L RBC 5.28 H Hgb 15.3 H Hct 47.3 H RDW 15.9 H Lymph % (Auto) 48.7 H Seg Neutrophils # 1.6 L Carbon Dioxide 35 H Glucose 139 H POC Glucose 174 H Hemoglobin A1c LDL Cholesterol Direct 06/17/18 06/17/18 06/17/18 04:19 06:27 11:28 WBC RBC Hgb Hct RDW Lymph % (Auto) Seg Neutrophils # Carbon Dioxide Glucose POC Glucose 133 H 129 H Hemoglobin A1c LDL Cholesterol Direct 139 H 06/17/18 06/17/18 06/17/18 16:43 18:38 21:20 WBC RBC Hgb Hct RDW Lymph % (Auto) Seg Neutrophils # Carbon Dioxide Glucose POC Glucose 135 H 108 H Hemoglobin A1c 8.5 H LDL Cholesterol Direct 06/18/18 06/18/18 06/18/18 06:33 11:06 15:47 WBC RBC Hgb Hct RDW Lymph % (Auto) Seg Neutrophils # Carbon Dioxide Glucose POC Glucose 106 H 151 H 119 H Hemoglobin A1c LDL Cholesterol Direct 06/19/18 06/19/18 05:47 10:40 WBC RBC Hgb Hct RDW Lymph % (Auto) Seg Neutrophils # Carbon Dioxide Glucose POC Glucose 113 H 142 H Hemoglobin A1c LDL Cholesterol Direct
[2018-06-19] MEDS: SODIUM CHLORIDE FLUSH SYRINGE 10 ML IV PRN (21:21)
[2018-06-19] MEDS: LOVENOX SUB-Q SCH (21:21)
[2018-06-20] MEDS: GLUCOPHAGE PO SCH ×2 (09:48→21:11)
[2018-06-20] MEDS: PLAVIX PO SCH (09:48)
[2018-06-20] MEDS: HABITROL TD SCH (09:48)
--- NOTE | 2018-06-20 12:47 | Progress Note ---
History Interval history: Acute CVA with progression of ischemia - CT head shows chronic left-sided infarcts on admission and progression on the morning of 06/19/18. - MRI/MRA is pending, PT/OT, neurology following. - Patient is on plavix and statin Hypertension - held BP meds , permissive HTN Diabetes mellitus - Sliding-scale insulin, ADA diet, Accu-Chek Active tobacco smoker - On nicotine patch DVT prophylaxis - On Lovenox Disposition - Continue inpatient care Hospitalist Physical - Constitutional Vitals: Temp Pulse Resp BP Pulse Ox 98.0 F 80 18 129/62 88 06/20/18 07:47 06/20/18 07:47 06/20/18 07:47 06/20/18 07:47 06/20/18 07:47 Results - Labs CBC & Chem 7: 06/16/18 18:39 06/16/18 18:39 Labs: Laboratory Last Values WBC 3.7 K/mm3 (4.5-11.0) L 06/16/18 18:39 RBC 5.28 M/mm3 (3.65-5.03) H 06/16/18 18:39 Hgb 15.3 gm/dl (10.1-14.3) H 06/16/18 18:39 Hct 47.3 % (30.3-42.9) H 06/16/18 18:39 MCV 90 fl (79-97) 06/16/18 18:39 MCH 29 pg (28-32) 06/16/18 18:39 MCHC 32 % (30-34) 06/16/18 18:39 RDW 15.9 % (13.2-15.2) H 06/16/18 18:39 Plt Count 181 K/mm3 (140-440) 06/16/18 18:39 Lymph % (Auto) 48.7 % (13.4-35.0) H 06/16/18 18:39 [place] % (Auto) 6.1 % (0.0-7.3) 06/16/18 18:39 Eos % (Auto) 2.0 % (0.0-4.3) 06/16/18 18:39 Baso % (Auto) 1.2 % (0.0-1.8) 06/16/18 18:39 Lymph # 1.8 K/mm3 (1.2-5.4) 06/16/18 18:39 [place] # 0.2 K/mm3 (0.0-0.8) 06/16/18 18:39 Eos # 0.1 K/mm3 (0.0-0.4) 06/16/18 18:39 Baso # 0.0 K/mm3 (0.0-0.1) 06/16/18 18:39 Seg Neutrophils % 42.0 % (40.0-70.0) 06/16/18 18:39 Seg Neutrophils # 1.6 K/mm3 (1.8-7.7) L 06/16/18 18:39 PT 13.9 Sec. (12.2-14.9) 06/19/18 16:35 INR 1.03 (0.87-1.13) 06/19/18 16:35 APTT 28.0 Sec. (24.2-36.6) 06/19/18 16:35 Thrombin Time 18.6 Sec. (15.1-19.6) 06/16/18 18:39 Sodium 145 mmol/L (137-145) 06/16/18 18:39 Potassium 4.4 mmol/L (3.6-5.0) 06/16/18 18:39 Chloride 101.5 mmol/L (98-107) 06/16/18 18:39 Carbon Dioxide 35 mmol/L (22-30) H 06/16/18 18:39 Anion Gap 13 mmol/L 06/16/18 18:39 BUN 11 mg/dL (7-17) 06/16/18 18:39 Creatinine 0.7 mg/dL (0.7-1.2) 06/16/18 18:39 Estimated GFR > 60 ml/min 06/16/18 18:39 BUN/Creatinine Ratio 16 % 06/16/18 18:39 Glucose 139 mg/dL (65-100) H 06/16/18 18:39 POC Glucose 75 (70-105) 06/20/18 11:56 Hemoglobin A1c 8.5 % (4-6) H 06/17/18 16:43 Calcium 9.6 mg/dL (8.4-10.2) 06/16/18 18:39 Total Bilirubin 0.20 mg/dL (0.1-1.2) 06/16/18 18:39 AST 15 units/L (5-40) 06/16/18 18:39 ALT 9 units/L (7-56) 06/16/18 18:39 Alkaline Phosphatase 102 units/L (35-129) 06/16/18 18:39 Total Creatine Kinase 112 units/L (30-135) 06/16/18 18:39 CK-MB (CK-2) 2.6 ng/mL (0.0-4.0) 06/16/18 18:39 CK-MB (CK-2) Rel Index 2.3 (0-4) 06/16/18 18:39 Troponin T < 0.010 ng/mL (0.00-0.029) 06/16/18 18:39 Total Protein 7.6 g/dL (6.3-8.2) 06/16/18 18:39 Albumin 4.1 g/dL (3.9-5) 06/16/18 18:39 Albumin/Globulin Ratio 1.2 % 06/16/18 18:39 Triglycerides 135 mg/dL (2-149) 06/17/18 04:19 Cholesterol 184 mg/dL (50-199) 06/17/18 04:19 LDL Cholesterol Direct 139 mg/dL (50-130) H 06/17/18 04:19 HDL Cholesterol 42 mg/dL (40-59) 06/17/18 04:19 Cholesterol/HDL Ratio 4.38 % 06/17/18 04:19 Urine Color Faye (Yellow) 06/17/18 12:00 Urine Turbidity Slightly-cloudy (Clear) 06/17/18 12:00 Urine pH 5.0 (5.0-7.0) 06/17/18 12:00 Ur Specific [place] 1.023 (1.003-1.030) 06/17/18 12:00 Urine Protein 100 mg/dl mg/dL (Negative) 06/17/18 12:00 Urine Glucose (UA) Neg mg/dL (Negative) 06/17/18 12:00 Urine Ketones Neg mg/dL (Negative) 06/17/18 12:00 Urine Blood Sm (Negative) 06/17/18 12:00 Urine Nitrite Neg (Negative) 06/17/18 12:00 Urine Bilirubin Neg (Negative) 06/17/18 12:00 Urine Urobilinogen < 2.0 mg/dL (<2.0) 06/17/18 12:00 Ur Leukocyte Esterase Neg (Negative) 06/17/18 12:00 Urine WBC (Auto) 5.0 /HPF (0.0-6.0) 06/17/18 12:00 Urine RBC (Auto) 1.0 /HPF (0.0-6.0) 06/17/18 12:00 U Epithel Cells (Auto) 5.0 /HPF (0-13.0) 06/17/18 12:00 Urine Bacteria (Auto) 4+ /HPF (Negative) 06/17/18 12:00 Urine Mucus 1+ /HPF 06/17/18 12:00
[2018-06-20] MEDS: HumaLOG SUB-Q SCH ×3 (13:29→17:23)
[2018-06-20] MEDS: LOVENOX SUB-Q SCH (21:11)
[2018-06-20] MEDS: SODIUM CHLORIDE FLUSH SYRINGE 10 ML IV PRN (21:11)
--- NOTE | 2018-06-20 23:45 | Magnetic Resonance Report ---
FINAL REPORT PROCEDURE: MR BRAIN WO CON TECHNIQUE: Magnetic resonance imaging of the brain was performed without contrast material. HISTORY: strokeinpatient COMPARISON: 06/20/2018 FINDINGS: Diffusion images demonstrate high signal intensity in the right basal ganglia and thalamus and the ri ght medial temporal lobe consistent with recent ischemic infarction. T2 and FLAIR images demonstrate chronic deep white matter ischemic gliosis. There is no hemorrhage. There is central and cortical atrophy appropriate for the patient's age. There is no hydrocephalus. T here is no mass effect, midline shift or herniation. The corpus callosum, brainstem, catie and cerebellum are unremarkable. The bony calvarium is intact. The paranasal sinuses are clear. IMPRESSION: Diffusion images demonstrate high signal intensity in the right basal ganglia and thalamus and the ri ght medial temporal lobe consistent with recent ischemic infarction. T2 and FLAIR images demonstrate chronic deep white matter ischemic gliosis. There is no hemorrhage. There is central and cortical atrophy appropriate for the patient's age. There is no hydrocephalus. There is no mass effect, midline shift or herniation.
--- NOTE | 2018-06-20 23:45 | Magnetic Resonance Report ---
FINAL REPORT PROCEDURE: MRI BRAIN WO CONTRAST AND MRA BRAIN AND MRA NECK WO CONTRAST TECHNIQUE: MR angiography of the cervical carotid and vertebral arteries was performed. The source i mages were reconstructed in various views using maximum intensity projection. HISTORY: strokeinpatient COMPARISON: No prior studies are available for comparison. FINDINGS: The common carotid arteries are patent and normal in caliber. There is focal narrowing of the carotid bulbs bilaterally measuring less than 50 percent on the right and 50- 69 percent on the left. There is tortuous elongation of the internal carotid arteries without focal stenosis, occlusion or dissect ion. The vertebral arteries are patent and normal in caliber. The nonvascular cervical soft tissue and bony structures are unremarkable. IMPRESSION: There is focal narrowing of the carotid bulbs bilaterally measuring less than 50 percent on the right and 50 - 69 percent on the left. There is tortuous elongation of the internal carotid arteries without focal stenosis, occlusion or di ssection. The vertebral arteries are patent and normal in caliber.
[2018-06-21] MEDS: HumaLOG SUB-Q SCH ×5 (01:19→22:00)
[2018-06-21] MEDS: GLUCOPHAGE PO SCH ×2 (10:00→22:00)
--- NOTE | 2018-06-21 10:09 | Fluoroscopy Report ---
MODIFIED BARIUM SWALLOW History: dysphagia, CVA. Findings: Video radiography was provided by the radiologist for speech therapy to assess the swallowing mechanism. 1 fluoroscopic image was captured. Impression: Successful modified barium swallow.
--- NOTE | 2018-06-21 10:37 | Query- Dyspnea ---
Jess Moncada Date:___06/21/2018 Deven/CDS:__Uzma/Chloe Phone#:__[phone] Exercise your independent professional judgment when responding to query. Questions asked do not imply a particular answer is desired or expected. We greatly appreciate your clarification on this issue. Clinical Documentation States: 68-year-old male with a history of hypertension, CVA comes emergency room complaining of left sided weakness 3 weeks. She has difficulty ambulating and occasionally drops things from the left hand. Clinical Findings Show: O2 Sat 06/19 77 06/20 79 Oxygen Flow Rate: 2L/min Please clarify if the patient had any of the following conditions based on the above clinical findings: [x ] Respiratory Failure [ x] Acute [ ] Acute on Chronic [ ] Chronic [ ] Respiratory failure due to trauma [ ] Acute Respiratory Distress Syndrome [ ] Other: [ ] Unable to determine [ ] Comment/Explanation: Present on Admission: [ x] Yes (Y) [ ] Clinically undeterminable (W) [ ] No (N) Please also document response in your Progress Notes and/or Discharge Summary and indicate if the condition was present on admission. SEAND
[2018-06-21] MEDS: PLAVIX PO SCH (10:43)
[2018-06-21] MEDS: HABITROL TD SCH (10:43)
--- NOTE | 2018-06-21 10:55 | Progress Note ---
History Interval history: Acute CVA with progression of ischemia - CT head shows chronic left-sided infarcts on admission and progression on the morning of 06/19/18. - MRI/MRA revealed findings of right basal ganglia and thalamus and the right medial temporal lobe consistent with recent ischemic infarction. - Echocardiogram reveals severe consistent with left ventricular hypertrophy with an EF of 50-55%. Moderate tricuspid regurgitation with right ventricular systolic pressure at 46 mmHg. No reports of intracardiac thrombi - Patient is on plavix and statin - PT following Hypertension - held BP meds , permissive HTN Diabetes mellitus - Sliding-scale insulin, ADA diet, Accu-Chek Active tobacco smoker - On nicotine patch DVT prophylaxis - On Lovenox Disposition - Continue inpatient care, await PT recommendations for discharge. Hospitalist Physical - Constitutional Vitals: Temp Pulse Resp BP Pulse Ox 97.5 F L 67 16 135/81 96 06/21/18 08:16 06/21/18 08:16 06/21/18 08:16 06/21/18 08:16 06/21/18 08:16 Results - Labs CBC & Chem 7: 06/16/18 18:39 06/16/18 18:39 Labs: Laboratory Last Values WBC 3.7 K/mm3 (4.5-11.0) L 06/16/18 18:39 RBC 5.28 M/mm3 (3.65-5.03) H 06/16/18 18:39 Hgb 15.3 gm/dl (10.1-14.3) H 06/16/18 18:39 Hct 47.3 % (30.3-42.9) H 06/16/18 18:39 MCV 90 fl (79-97) 06/16/18 18:39 MCH 29 pg (28-32) 06/16/18 18:39 MCHC 32 % (30-34) 06/16/18 18:39 RDW 15.9 % (13.2-15.2) H 06/16/18 18:39 Plt Count 181 K/mm3 (140-440) 06/16/18 18:39 Lymph % (Auto) 48.7 % (13.4-35.0) H 06/16/18 18:39 [place] % (Auto) 6.1 % (0.0-7.3) 06/16/18 18:39 Eos % (Auto) 2.0 % (0.0-4.3) 06/16/18 18:39 Baso % (Auto) 1.2 % (0.0-1.8) 06/16/18 18:39 Lymph # 1.8 K/mm3 (1.2-5.4) 06/16/18 18:39 [place] # 0.2 K/mm3 (0.0-0.8) 06/16/18 18:39 Eos # 0.1 K/mm3 (0.0-0.4) 06/16/18 18:39 Baso # 0.0 K/mm3 (0.0-0.1) 06/16/18 18:39 Seg Neutrophils % 42.0 % (40.0-70.0) 06/16/18 18:39 Seg Neutrophils # 1.6 K/mm3 (1.8-7.7) L 06/16/18 18:39 PT 13.9 Sec. (12.2-14.9) 06/19/18 16:35 INR 1.03 (0.87-1.13) 06/19/18 16:35 APTT 28.0 Sec. (24.2-36.6) 06/19/18 16:35 Thrombin Time 18.6 Sec. (15.1-19.6) 06/16/18 18:39 Sodium 145 mmol/L (137-145) 06/16/18 18:39 Potassium 4.4 mmol/L (3.6-5.0) 06/16/18 18:39 Chloride 101.5 mmol/L (98-107) 06/16/18 18:39 Carbon Dioxide 35 mmol/L (22-30) H 06/16/18 18:39 Anion Gap 13 mmol/L 06/16/18 18:39 BUN 11 mg/dL (7-17) 06/16/18 18:39 Creatinine 0.7 mg/dL (0.7-1.2) 06/16/18 18:39 Estimated GFR > 60 ml/min 06/16/18 18:39 BUN/Creatinine Ratio 16 % 06/16/18 18:39 Glucose 139 mg/dL (65-100) H 06/16/18 18:39 POC Glucose 106 (70-105) H 06/21/18 05:41 Hemoglobin A1c 8.5 % (4-6) H 06/17/18 16:43 Calcium 9.6 mg/dL (8.4-10.2) 06/16/18 18:39 Total Bilirubin 0.20 mg/dL (0.1-1.2) 06/16/18 18:39 AST 15 units/L (5-40) 06/16/18 18:39 ALT 9 units/L (7-56) 06/16/18 18:39 Alkaline Phosphatase 102 units/L (35-129) 06/16/18 18:39 Total Creatine Kinase 112 units/L (30-135) 06/16/18 18:39 CK-MB (CK-2) 2.6 ng/mL (0.0-4.0) 06/16/18 18:39 CK-MB (CK-2) Rel Index 2.3 (0-4) 06/16/18 18:39 Troponin T < 0.010 ng/mL (0.00-0.029) 06/16/18 18:39 Total Protein 7.6 g/dL (6.3-8.2) 06/16/18 18:39 Albumin 4.1 g/dL (3.9-5) 06/16/18 18:39 Albumin/Globulin Ratio 1.2 % 06/16/18 18:39 Triglycerides 135 mg/dL (2-149) 06/17/18 04:19 Cholesterol 184 mg/dL (50-199) 06/17/18 04:19 LDL Cholesterol Direct 139 mg/dL (50-130) H 06/17/18 04:19 HDL Cholesterol 42 mg/dL (40-59) 06/17/18 04:19 Cholesterol/HDL Ratio 4.38 % 06/17/18 04:19 Urine Color [place] (Yellow) 06/17/18 12:00 Urine Turbidity Slightly-cloudy (Clear) 06/17/18 12:00 Urine pH 5.0 (5.0-7.0) 06/17/18 12:00 Ur Specific [place] 1.023 (1.003-1.030) 06/17/18 12:00 Urine Protein 100 mg/dl mg/dL (Negative) 06/17/18 12:00 Urine Glucose (UA) Neg mg/dL (Negative) 06/17/18 12:00 Urine Ketones Neg mg/dL (Negative) 06/17/18 12:00 Urine Blood Sm (Negative) 06/17/18 12:00 Urine Nitrite Neg (Negative) 06/17/18 12:00 Urine Bilirubin Neg (Negative) 06/17/18 12:00 Urine Urobilinogen < 2.0 mg/dL (<2.0) 06/17/18 12:00 Ur Leukocyte Esterase Neg (Negative) 06/17/18 12:00 Urine WBC (Auto) 5.0 /HPF (0.0-6.0) 06/17/18 12:00 Urine RBC (Auto) 1.0 /HPF (0.0-6.0) 06/17/18 12:00 U Epithel Cells (Auto) 5.0 /HPF (0-13.0) 06/17/18 12:00 Urine Bacteria (Auto) 4+ /HPF (Negative) 06/17/18 12:00 Urine Mucus 1+ /HPF 06/17/18 12:00
[2018-06-21] MEDS: LOVENOX SUB-Q SCH (22:54)
[2018-06-22] MEDS: HumaLOG SUB-Q SCH ×4 (07:30→21:54)
[2018-06-22] MEDS: GLUCOPHAGE PO SCH ×3 (07:59→21:54)
[2018-06-22] MEDS: HABITROL TD SCH (09:37)
[2018-06-22] MEDS: PLAVIX PO SCH (09:37)
--- NOTE | 2018-06-22 10:48 | Progress Note ---
Assessment and Plan Assessment and plan: Acute CVA with progression of ischemia - CT head shows chronic left-sided infarcts on admission and progression on the morning of 06/19/18. - MRI/MRA revealed findings of right basal ganglia and thalamus and the right medial temporal lobe consistent with recent ischemic infarction. - Echocardiogram reveals severe consistent with left ventricular hypertrophy with an EF of 50-55%. Moderate tricuspid regurgitation with right ventricular systolic pressure at 46 mmHg. No reports of intracardiac thrombi - Patient is on plavix and statin - PT following Hypertension - held BP meds , permissive HTN Diabetes mellitus - Sliding-scale insulin, ADA diet, Accu-Chek Active tobacco smoker - On nicotine patch DVT prophylaxis - On Lovenox Disposition - Continue inpatient care, await PT recommendations for discharge. History Interval history: Pt with no new issues. Still c/o weakness Hospitalist Physical - Constitutional Vitals: Temp Pulse Resp BP Pulse Ox 98.3 F 69 20 134/73 94 06/22/18 07:40 06/22/18 07:40 06/22/18 07:40 06/22/18 07:40 06/22/18 07:40 Results - Labs CBC & Chem 7: 06/16/18 18:39 06/16/18 18:39 Labs: Laboratory Last Values WBC 3.7 K/mm3 (4.5-11.0) L 06/16/18 18:39 RBC 5.28 M/mm3 (3.65-5.03) H 06/16/18 18:39 Hgb 15.3 gm/dl (10.1-14.3) H 06/16/18 18:39 Hct 47.3 % (30.3-42.9) H 06/16/18 18:39 MCV 90 fl (79-97) 06/16/18 18:39 MCH 29 pg (28-32) 06/16/18 18:39 MCHC 32 % (30-34) 06/16/18 18:39 RDW 15.9 % (13.2-15.2) H 06/16/18 18:39 Plt Count 181 K/mm3 (140-440) 06/16/18 18:39 Lymph % (Auto) 48.7 % (13.4-35.0) H 06/16/18 18:39 [place] % (Auto) 6.1 % (0.0-7.3) 06/16/18 18:39 Eos % (Auto) 2.0 % (0.0-4.3) 06/16/18 18:39 Baso % (Auto) 1.2 % (0.0-1.8) 06/16/18 18:39 Lymph # 1.8 K/mm3 (1.2-5.4) 06/16/18 18:39 [place] # 0.2 K/mm3 (0.0-0.8) 06/16/18 18:39 Eos # 0.1 K/mm3 (0.0-0.4) 06/16/18 18:39 Baso # 0.0 K/mm3 (0.0-0.1) 06/16/18 18:39 Seg Neutrophils % 42.0 % (40.0-70.0) 06/16/18 18:39 Seg Neutrophils # 1.6 K/mm3 (1.8-7.7) L 06/16/18 18:39 PT 13.9 Sec. (12.2-14.9) 06/19/18 16:35 INR 1.03 (0.87-1.13) 06/19/18 16:35 APTT 28.0 Sec. (24.2-36.6) 06/19/18 16:35 Thrombin Time 18.6 Sec. (15.1-19.6) 06/16/18 18:39 Sodium 145 mmol/L (137-145) 06/16/18 18:39 Potassium 4.4 mmol/L (3.6-5.0) 06/16/18 18:39 Chloride 101.5 mmol/L (98-107) 06/16/18 18:39 Carbon Dioxide 35 mmol/L (22-30) H 06/16/18 18:39 Anion Gap 13 mmol/L 06/16/18 18:39 BUN 11 mg/dL (7-17) 06/16/18 18:39 Creatinine 0.7 mg/dL (0.7-1.2) 06/16/18 18:39 Estimated GFR > 60 ml/min 06/16/18 18:39 BUN/Creatinine Ratio 16 % 06/16/18 18:39 Glucose 139 mg/dL (65-100) H 06/16/18 18:39 POC Glucose 110 (70-105) H 06/22/18 07:40 Hemoglobin A1c 8.5 % (4-6) H 06/17/18 16:43 Calcium 9.6 mg/dL (8.4-10.2) 06/16/18 18:39 Total Bilirubin 0.20 mg/dL (0.1-1.2) 06/16/18 18:39 AST 15 units/L (5-40) 06/16/18 18:39 ALT 9 units/L (7-56) 06/16/18 18:39 Alkaline Phosphatase 102 units/L (35-129) 06/16/18 18:39 Total Creatine Kinase 112 units/L (30-135) 06/16/18 18:39 CK-MB (CK-2) 2.6 ng/mL (0.0-4.0) 06/16/18 18:39 CK-MB (CK-2) Rel Index 2.3 (0-4) 06/16/18 18:39 Troponin T < 0.010 ng/mL (0.00-0.029) 06/16/18 18:39 Total Protein 7.6 g/dL (6.3-8.2) 06/16/18 18:39 Albumin 4.1 g/dL (3.9-5) 06/16/18 18:39 Albumin/Globulin Ratio 1.2 % 06/16/18 18:39 Triglycerides 135 mg/dL (2-149) 06/17/18 04:19 Cholesterol 184 mg/dL (50-199) 06/17/18 04:19 LDL Cholesterol Direct 139 mg/dL (50-130) H 06/17/18 04:19 HDL Cholesterol 42 mg/dL (40-59) 06/17/18 04:19 Cholesterol/HDL Ratio 4.38 % 06/17/18 04:19 Urine Color Faye (Yellow) 06/17/18 12:00 Urine Turbidity Slightly-cloudy (Clear) 06/17/18 12:00 Urine pH 5.0 (5.0-7.0) 06/17/18 12:00 Ur Specific [place] 1.023 (1.003-1.030) 06/17/18 12:00 Urine Protein 100 mg/dl mg/dL (Negative) 06/17/18 12:00 Urine Glucose (UA) Neg mg/dL (Negative) 06/17/18 12:00 Urine Ketones Neg mg/dL (Negative) 06/17/18 12:00 Urine Blood Sm (Negative) 06/17/18 12:00 Urine Nitrite Neg (Negative) 06/17/18 12:00 Urine Bilirubin Neg (Negative) 06/17/18 12:00 Urine Urobilinogen < 2.0 mg/dL (<2.0) 06/17/18 12:00 Ur Leukocyte Esterase Neg (Negative) 06/17/18 12:00 Urine WBC (Auto) 5.0 /HPF (0.0-6.0) 06/17/18 12:00 Urine RBC (Auto) 1.0 /HPF (0.0-6.0) 06/17/18 12:00 U Epithel Cells (Auto) 5.0 /HPF (0-13.0) 06/17/18 12:00 Urine Bacteria (Auto) 4+ /HPF (Negative) 06/17/18 12:00 Urine Mucus 1+ /HPF 06/17/18 12:00
--- NOTE | 2018-06-22 18:10 | Progress Note ---
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 which is the arterial disribution that I earliesr felt is causing the stroke this is anatomically consistent this is not surgically fixable and can not be reached with catheter medical therapy is only option Objective - Vital Sign Vital Signs - 12hr 06/22/18 06/22/18 06/22/18 07:40 10:00 13:24 Temperature 98.3 F 97.8 F Pulse Rate 69 70 73 Respiratory 20 20 Rate Blood Pressure 134/73 165/81 O2 Sat by Pulse 94 99 95 Oximetry - Laboratory Findings CBC and BMP: 06/16/18 18:39 06/16/18 18:39 Abnormal Lab Findings: Abnormal Labs 06/16/18 06/16/18 06/16/18 17:24 18:39 18:39 WBC 3.7 L RBC 5.28 H Hgb 15.3 H Hct 47.3 H RDW 15.9 H Lymph % (Auto) 48.7 H Seg Neutrophils # 1.6 L Carbon Dioxide 35 H Glucose 139 H POC Glucose 174 H Hemoglobin A1c LDL Cholesterol Direct 06/17/18 06/17/18 06/17/18 04:19 06:27 11:28 WBC RBC Hgb Hct RDW Lymph % (Auto) Seg Neutrophils # Carbon Dioxide Glucose POC Glucose 133 H 129 H Hemoglobin A1c LDL Cholesterol Direct 139 H 06/17/18 06/17/18 06/17/18 16:43 18:38 21:20 WBC RBC Hgb Hct RDW Lymph % (Auto) Seg Neutrophils # Carbon Dioxide Glucose POC Glucose 135 H 108 H Hemoglobin A1c 8.5 H LDL Cholesterol Direct 06/18/18 06/18/18 06/18/18 06:33 11:06 15:47 WBC RBC Hgb Hct RDW Lymph % (Auto) Seg Neutrophils # Carbon Dioxide Glucose POC Glucose 106 H 151 H 119 H Hemoglobin A1c LDL Cholesterol Direct 06/19/18 06/19/18 06/21/18 05:47 10:40 01:06 WBC RBC Hgb Hct RDW Lymph % (Auto) Seg Neutrophils # Carbon Dioxide Glucose POC Glucose 113 H 142 H 128 H Hemoglobin A1c LDL Cholesterol Direct 06/21/18 06/21/18 06/21/18 05:41 10:58 17:08 WBC RBC Hgb Hct RDW Lymph % (Auto) Seg Neutrophils # Carbon Dioxide Glucose POC Glucose 106 H 161 H 106 H Hemoglobin A1c LDL Cholesterol Direct 06/21/18 06/22/18 06/22/18 21:43 07:40 11:48 WBC RBC Hgb Hct RDW Lymph % (Auto) Seg Neutrophils # Carbon Dioxide Glucose POC Glucose 153 H 110 H 144 H Hemoglobin A1c LDL Cholesterol Direct 06/22/18 16:48 WBC RBC Hgb Hct RDW Lymph % (Auto) Seg Neutrophils # Carbon Dioxide Glucose POC Glucose 113 H Hemoglobin A1c LDL Cholesterol Direct
[2018-06-22] MEDS: LOVENOX SUB-Q SCH (21:54)
[2018-06-23 08:10] VITALS: BP 144/84
[2018-06-23] MEDS: HABITROL TD SCH ×2 (08:51→10:58)
[2018-06-23] MEDS: GLUCOPHAGE PO SCH ×2 (08:51→10:58)
[2018-06-23] MEDS: PLAVIX PO SCH ×2 (08:51→10:58)
[2018-06-23] MEDS: HumaLOG SUB-Q SCH (08:51)
--- NOTE | 2018-06-23 09:17 | Discharge Summary ---
Providers - Providers Date of Admission: 06/16/18 19:56 Date of discharge: 06/23/18 Attending physician: MARIE JACKSON 06/16/18 22:27 Occupational Therapy Evaluate and Treat [CONS] Routine Comment: Reason For Exam: Neuro deficits Physical Therapy Evaluation and Treat [CONS] Routine Comment: Reason For Exam: Neuro deficits 06/17/18 01:16 Consult to Physician [CONS] Routine Comment: cva Consulting Provider: JONN LUKE Physician Instructions: Reason For Exam: cva 06/19/18 10:34 Speech Therapy Evaluation and Treat [CONS] Urgent Reason For Exam: CVA Primary care physician: TWISTER TENDER Hospitalization Reason for admission: cva Condition: Stable Hospital course: 68-year-old male with a history of hypertension, CVA comes emergency room complaining of left sided weakness 3 weeks. She had difficulty ambulating and occasionally drops things from the left hand. The patient was admitted with diagnosis of acute CVA with mild left hemiparesis. Initial CT head showed chronic left-sided infarcts. However, on 06/19/18, the patient was noted to have decompensation neurologically and [place] stroke was called with new CT head showing progression of the right subthalamic infarction. Telemetry neurologist was consulted and recommended routine stroke workup, nothing much can be done acutely. Patient underwent continue workup with MRI/MRA revealing findings of right basal ganglia and thalamus and the right medial temporal lobe consistent with recent ischemic infarction. Echocardiogram reveals severe consistent with left ventricular hypertrophy with an EF of 50-55%. Moderate tricuspid regurgitation with right ventricular systolic pressure at 46 mmHg. No reports of intracardiac thrombi. Neurology felt that the stroke was ischemic and limited to an area EXERCISER. 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 This is anatomically consistent and is not surgically fixable and can not be reached with catheter. Neurology reports Medical therapy is only option. PT evaluated the patient and recommended CLARA. Case management was consulted and arranged for placement. Dedicated discharge time 32 minutes. Disposition: DC/[place]-03 [facility] Time spent for discharge: 32 - Discharge Diagnoses (1) Abnormality of gait following cerebrovascular accident (CVA) Status: Acute (2) CVA (cerebral vascular accident) Status: Acute (3) HTN (hypertension) Status: Chronic Qualifiers: (4) COPD (chronic obstructive pulmonary disease) Status: Acute Qualifiers: COPD type: unspecified COPD Qualified Code(s): J44.9 - Chronic obstructive pulmonary disease, unspecified (5) Diabetes Status: Chronic Qualifiers: Diabetes mellitus type: type 2 Diabetes mellitus jail insulin use: with termination clerk use Diabetes mellitus complication status: with hyperglycemia Qualified Code(s): E11.65 - Type 2 diabetes mellitus with hyperglycemia; Z79.4 - senior care (current) use of insulin Core Measure Documentation - Palliative Care Palliative Care/ Comfort Measures: Not Applicable - Core Measures Any of the following diagnoses?: none Exam - Constitutional Vitals: Temp Pulse Resp BP Pulse Ox 97.9 F 72 20 144/84 95 06/23/18 07:37 06/23/18 07:37 06/23/18 07:37 06/23/18 07:37 06/23/18 08:42 General appearance: Present: no acute distress, well-nourished - EENT Eyes: Present: PERRL ENT: hearing intact, clear oral mucosa - Neck Neck: Present: supple, normal ROM - Respiratory Respiratory effort: normal Respiratory: bilateral: CTA - Cardiovascular Heart Sounds: Present: S1 & S2. Absent: rub, click - Extremities Extremities: pulses symmetrical, No edema Peripheral Pulses: within normal limits - Abdominal General gastrointestinal: Present: soft, non-tender, non-distended, normal bowel sounds Female genitourinary: Present: normal - Integumentary Integumentary: Present: clear, warm, dry - Musculoskeletal Musculoskeletal: gait normal, strength equal bilaterally - Psychiatric Psychiatric: appropriate mood/affect, intact judgment & insight - Neurologic Neurologic: CNII-XII intact, moves all extremities Plan Activity: advance as tolerated Weight Bearing Status: Weight Bear as Tolerated Diet: low fat, low cholesterol, low salt, diabetic Follow up with: PRIMARY MD DEISI [Primary Care Provider] - 3-5 Days JONN LUKE MD [Staff Physician] - 7 Days
== END 2018-06-23 12:10 | DRG 64 ==
LOC: ED 17:04 → 4A 19:56 → 2B-ACE 06-21 19:04
PROVIDERS: ADMIT Internal Medicine; ATTEND Hospitalist
PROC: 3E0234Z Introduction of Serum, Toxoid and Vaccine into Muscle, Percutaneous Approach (ICD-10-PCS; principal; 2018-06-16)
DX: I63.531 Cerebral infarction due to unspecified occlusion or stenosis of right posterior cerebral artery (principal); J96.00 Acute respiratory failure, unspecified whether with hypoxia or hypercapnia; G81.94 Hemiplegia, unspecified affecting left nondominant side; I10 Essential (primary) hypertension; I25.10 Atherosclerotic heart disease of native coronary artery without angina pectoris; E11.65 Type 2 diabetes mellitus with hyperglycemia; F17.210 Nicotine dependence, cigarettes, uncomplicated; Z86.73 Personal history of transient ischemic attack (TIA), and cerebral infarction without residual deficits; Z82.49 Family history of ischemic heart disease and other diseases of the circulatory system; Z79.4 Long term (current) use of insulin; Z79.899 Other long term (current) drug therapy; I25.2 Old myocardial infarction; Z23 Encounter for immunization; Z71.6 Tobacco abuse counseling
CPT/HCPCS: 36415; 70450; 70544; 70547; 70551; 71045; 71275; 74230; 80053; 80061; 81001; 82550; 82553; 82962; 83036; 84484; 85025; 85610; 85670; 85730; 90471; 90686; 90732; 93005; 93010; 93306; 94760; 96374; G0378; A9270-GY; G0008; G0009; J0360; J1650; J1815; Q9967

== ENCOUNTER 2018-09-19 12:38 | Emergency (ER) | payer MEDICARE ==
[2018-09-19] MEDS ORDERED: LEVOPHED DRIP 4 MG/NS 250 ML 0 MG/0 ML BAG IV ONE (12:53)
[2018-09-19] MEDS ORDERED: ADRENALIN ONE (13:00)
[2018-09-19] MEDS ORDERED: CALCIUM CHLORIDE IV ONE (13:00)
--- NOTE | 2018-09-19 13:09 | Emergency Department Report ---
ED CPR HPI - General Stated Complaint: CARDIAC ARREST Time Seen by Provider: 09/19/18 13:06 - History of Present Illness Initial Comments: Patient is a 68-year-old female who presents with cardiac arrest. History is limited due to acuity of the patient's medical condition. - Related Data Home Medications Medication Instructions Recorded Confirmed Last Taken Lisinopril [Zestril] 10 mg PO DAILY 06/16/18 06/16/18 Unknown buPROPion SR [Wellbutrin SR] 150 mg PO BID 06/16/18 06/16/18 Unknown metFORMIN [Glucophage] 850 mg PO BID 06/16/18 06/16/18 Unknown Previous Rx's Medication Instructions Recorded Last Taken Type Insulin NPH/Regular [NovoLIN 70/30] 10 unit SUB-Q BIDDIAB 30 Days 11/22/16 Unknown Rx units amLODIPine [Norvasc] 10 mg PO DAILY #30 tab 11/22/16 Unknown Rx AtorvaSTATin [Lipitor] 40 mg PO QHS tablet 06/23/18 Unknown Rx Clopidogrel [Plavix] 75 mg PO QDAY tablet 06/23/18 Unknown Rx Lispro Insulin [Humalog] 0 unit SUB-Q ACHS units 06/23/18 Unknown Rx Magnesium Hydroxide [Milk of 30 ml PO Q4H PRN oral.liqd 06/23/18 Unknown Rx Magnesia] Metoclopramide [Reglan TAB] 10 mg PO Q6H PRN tablet 06/23/18 Unknown Rx Nicotine [Habitrol] 14 mg TD QDAY patch 06/23/18 Unknown Rx Allergies Allergy/AdvReac Type Severity Reaction Status Date / Time No Known Allergies Allergy Verified 11/11/16 15:26 ED Review of Systems ROS: Stated complaint: CARDIAC ARREST Other details as noted in HPI Comment: Unobtainable due to pts medical conditions ED Past Medical Hx - Past Medical History Hx Hypertension: Yes Hx Heart Attack/AMI: Yes ([place]) Hx Diabetes: Yes Hx Asthma: Yes Hx COPD: Yes Hx HIV: No Additional medical history: Arrhythmia o2 at home prn. CAD - Surgical History Additional Surgical History: Cardiac catheterization 2004 - Social History Smoking Status: Light Tobacco Smoker - Medications Home Medications: Home Medications Medication Instructions Recorded Confirmed Last Taken Type Insulin NPH/Regular [NovoLIN 70/30] 10 unit SUB-Q BIDDIAB 30 Days 11/22/16 06/16/18 Unknown Rx units amLODIPine [Norvasc] 10 mg PO DAILY #30 tab 11/22/16 06/16/18 Unknown Rx Lisinopril [Zestril] 10 mg PO DAILY 06/16/18 06/16/18 Unknown History buPROPion SR [Wellbutrin SR] 150 mg PO BID 06/16/18 06/16/18 Unknown History metFORMIN [Glucophage] 850 mg PO BID 06/16/18 06/16/18 Unknown History AtorvaSTATin [Lipitor] 40 mg PO QHS tablet 06/23/18 Unknown Rx Clopidogrel [Plavix] 75 mg PO QDAY tablet 06/23/18 Unknown Rx Lispro Insulin [Humalog] 0 unit SUB-Q ACHS units 06/23/18 Unknown Rx Magnesium Hydroxide [Milk of 30 ml PO Q4H PRN oral.liqd 06/23/18 Unknown Rx Magnesia] Metoclopramide [Reglan TAB] 10 mg PO Q6H PRN tablet 06/23/18 Unknown Rx Nicotine [Habitrol] 14 mg TD QDAY patch 06/23/18 Unknown Rx ED Physical Exam - General Limitations: Physical Limitation (acuity of condition ) General appearance: other (unresponsive ) - Head Head exam: Present: normocephalic - Eye Pupils: Present: other (fixed and dilated ) - Respiratory Respiratory exam: Present: other (no spontaenous breath sounds ) - Cardiovascular Cardiovascular Exam: Present: other (no spontaneous heart contractions ) - GI/Abdominal GI/Abdominal exam: Present: other (distended ) - Neurological Exam Neurological exam: Present: other (obtunded ) - Psychiatric Psychiatric exam: Present: other (not able to obtain) - Skin Skin exam: Present: other (cool and dry) ED Course Vital Signs 09/19/18 12:38 Pulse Rate 0 L Respiratory 18 Rate O2 Sat by Pulse 95 Oximetry - Intubation Time Out Performed: Yes Sedative: none Laryngoscope: Reina Size: 4 ET Tube Size: 7.5 Tube Secured Depth (cm): 22 Tube Secured Location: lips Tube Placement Confirmation: visualized tube passing t, confirmation by capnometr Patient Tolerated Procedure: well ED Medical Decision Making - Radiology Data Radiology results: report reviewed - Medical Decision Making Chief medical diagnosis: Cardiac arrest See code sheet for further details, was called at 1255 patient got epinephrine and was shocked however she really became bradycardia and we were not able to get ROSC Critical Care Time: Yes (30) Critical care time in (mins) excluding proc time.: 30 Critical care attestation.: If time is entered above; I have spent that time in minutes in the direct care of this critically ill patient, excluding procedure time. Time spent at patient's bedside 30 minutes. ED Disposition Clinical Impression: Cardiac arrest Disposition: DC-20 Is pt being admited?: No Does the pt Need Aspirin: No Condition: Stable Referrals: PRIMARY CARE, [Primary Care Provider] - 3-5 Days
== END 2018-09-19 18:23 ==
LOC: ED 12:38
DX: I46.9 Cardiac arrest, cause unspecified (principal); I10 Essential (primary) hypertension; I25.2 Old myocardial infarction; E11.9 Type 2 diabetes mellitus without complications; J44.9 Chronic obstructive pulmonary disease, unspecified; F17.210 Nicotine dependence, cigarettes, uncomplicated; Z79.4 Long term (current) use of insulin
CPT/HCPCS: 31500; 92950; 99285; J0171; 99291